=== PATIENT | female | born 1945 | race Caucasian/White ===

== ENCOUNTER 2017-09-26 13:03 | Observation (INO) | payer OTHER ==
[2017-09-26 13:47] LABS: ADD MAN DIFF? NO
[2017-09-26 13:59] LABS: BASOPHILS % 0.2 % (0.0-2.0); EOSINOPHILS # 0.1 10^3/ul (0.0-0.5); EOSINOPHILS % 1.1 % (0.0-7.0); HEMATOCRIT 37.5 % (37.0-47.0); HEMOGLOBIN 11.9 g/dl (12.0-16.0); LYMPHOCYTES # 1.3 10^3/ul (0.8-2.9); LYMPHOCYTES % 11.9 % (15.0-51.0); MEAN CORPUSCULAR HEMOGLOBIN 28.4 pg (29.0-33.0); MEAN CORPUSCULAR HGB CONC 31.7 g/dl (32.0-37.0); MEAN CORPUSCULAR VOLUME 89.5 fl (82.0-101.0); MEAN PLATELET VOLUME 11.2 fl (7.4-10.4); MONOCYTE # 0.5 10^3/ul (0.3-0.9); MONOCYTES % 4.7 % (0.0-11.0); NEUTROPHIL # 8.6 10^3/ul (1.6-7.5); NEUTROPHILS % 81.4 % (39.0-77.0); PLATELET COUNT 274 10^3/UL (140-415); RED BLOOD COUNT 4.19 10^6/ul (4.20-5.40); RED CELL DISTRIBUTION WIDTH 12.8 % (11.5-14.5)
[2017-09-26 13:59] LABS: WHITE BLOOD COUNT 10.6 10^3/ul (4.8-10.8)
[2017-09-26] MEDS: SOD CHLORIDE 0.9% 1,000 ML IV ×2 (14:08→21:21)
[2017-09-26] MEDS: SOD CHLORIDE 0.9% IV (14:08)
[2017-09-26 14:15] LABS: ALANINE AMINOTRANSFERASE 18 IU/L (13-69); ALBUMIN 4.1 g/dl (3.3-4.9); ALBUMIN/GLOBULIN RATIO 1.32; ALKALINE PHOSPHATASE 165 IU/L (42-121); ANION GAP 14 (8-16); ASPARTATE AMINO TRANSFERASE 23 IU/L (15-46); BILIRUBIN,INDIRECT 0.5 mg/dl (0-1.1); BILIRUBIN,TOTAL 0.5 mg/dl (0.2-1.3); BLOOD UREA NITROGEN 11 mg/dl (7-20); CARBON DIOXIDE 31 mmol/L (21-31); CHLORIDE 102 mmol/L (97-110); CREATININE 0.88 mg/dl (0.44-1.00); GLUCOSE 153 mg/dl (70-220); POTASSIUM 4.6 mmol/L (3.5-5.1); SODIUM 142 mmol/L (135-144); TOTAL PROTEIN 7.2 g/dl (6.1-8.1)
[2017-09-26 14:27] LABS: TROPONIN-I < 0.010 ng/ml (0.000-0.120)
[2017-09-26 14:32] LABS: FREE THYROXINE INDEX (Calc) 3.86 ug/ml (0.65-3.89); T3 UPTAKE 33.3 % (23.5-40.5); T4 (THYROXINE) 11.6 ug/dl (5.5-11.0)
[2017-09-26 14:46] LABS: LACTIC ACID 3.6 mmol/L (0.5-2.0)
[2017-09-26 15:22] LABS: ADD UMIC NO; UR ASCORBIC ACID NEGATIVE (NEGATIVE); UR BILIRUBIN (Dip) NEGATIVE (NEGATIVE); UR BLOOD (Dip) NEGATIVE (NEGATIVE); UR CLARITY CLEAR (CLEAR); UR COLOR STRAW (YELLOW); UR GLUCOSE (Dip) NEGATIVE (NEGATIVE); UR KETONES (Dip) NEGATIVE (NEGATIVE); UR LEUKOCYTE ESTERASE (Dip) NEGATIVE Leu/ul (NEGATIVE); UR NITRITE (Dip) NEGATIVE (NEGATIVE); UR SPECIFIC GRAVITY (Dip) 1.006 (1.003-1.030); UR TOTAL PROTEIN (Dip) NEGATIVE (NEGATIVE); UR UROBILINOGEN (Dip) NEGATIVE (NEGATIVE)
[2017-09-26] MEDS ORDERED: ACETAMINOPHEN 325 MG TAB PO ×2 (15:30→19:30)
[2017-09-26] MEDS ORDERED: ONDANSETRON 4 MG INJ IV ×2 (15:30→19:30)
[2017-09-26] MEDS: ERYTHROMYCIN 1 GM OPH OINT BOTH EYES (15:38)
[2017-09-26 16:01] LABS: LACTIC ACID 1.6 mmol/L (0.5-2.0)
[2017-09-26 18:35] LABS: LACTIC ACID 1.9 mmol/L (0.5-2.0)
[2017-09-26] MEDS ORDERED: NACL 0.9% 3 ML SYG IV (19:30)
[2017-09-26] MEDS ORDERED: BISACODYL 10 MG SUPP PR (19:30)
[2017-09-26] MEDS ORDERED: MAGNESIUM HYDROXIDE 30ML CUP PO (19:30)
[2017-09-26] MEDS ORDERED: DOCUSATE SODIUM 100 MG CAP PO (19:30)
[2017-09-26] MEDS: ATORVASTATIN 20 MG TAB PO (21:21)
[2017-09-27] MEDS: PANTOPRAZOLE (EC) 40 MG TAB PO (05:14)
[2017-09-27 07:37] LABS: ADD MAN DIFF? NO
[2017-09-27 07:43] LABS: BASOPHILS % 0.5 % (0.0-2.0); EOSINOPHILS # 0.1 10^3/ul (0.0-0.5); EOSINOPHILS % 2.2 % (0.0-7.0); HEMATOCRIT 34.3 % (37.0-47.0); HEMOGLOBIN 10.8 g/dl (12.0-16.0); LYMPHOCYTES # 1.8 10^3/ul (0.8-2.9); LYMPHOCYTES % 27.5 % (15.0-51.0); MEAN CORPUSCULAR HEMOGLOBIN 28.1 pg (29.0-33.0); MEAN CORPUSCULAR HGB CONC 31.5 g/dl (32.0-37.0); MEAN CORPUSCULAR VOLUME 89.1 fl (82.0-101.0); MEAN PLATELET VOLUME 11.1 fl (7.4-10.4); MONOCYTE # 0.5 10^3/ul (0.3-0.9); MONOCYTES % 8.1 % (0.0-11.0); NEUTROPHIL # 3.9 10^3/ul (1.6-7.5); NEUTROPHILS % 61.4 % (39.0-77.0); PLATELET COUNT 247 10^3/UL (140-415); RED BLOOD COUNT 3.85 10^6/ul (4.20-5.40); RED CELL DISTRIBUTION WIDTH 12.8 % (11.5-14.5)
[2017-09-27 07:43] LABS: WHITE BLOOD COUNT 6.4 10^3/ul (4.8-10.8)
[2017-09-27 08:03] LABS: ANION GAP 10 (8-16); BLOOD UREA NITROGEN 4 mg/dl (7-20); CALCIUM 9.1 mg/dl (8.4-10.2); CARBON DIOXIDE 28 mmol/L (21-31); CHLORIDE 107 mmol/L (97-110); CREATININE 0.63 mg/dl (0.44-1.00); GLUCOSE 92 mg/dl (70-220); MAGNESIUM 1.6 mg/dl (1.7-2.5); POTASSIUM 3.6 mmol/L (3.5-5.1); SODIUM 141 mmol/L (135-144)
[2017-09-27] MEDS: ESCITALOPRAM 10 MG TAB PO (09:29)
[2017-09-27] MEDS: MAGNESIUM SULFATE 2 GM/50 ML 50 ML IVPB (11:16)
== END 2017-09-27 18:23 | disposition home or self-care (01) ==
LOC: E/R 13:03 → PP2 15:31
DX: I95.9 Hypotension, unspecified (principal); E86.0 Dehydration; F03.90 Unspecified dementia, unspecified severity, without behavioral disturbance, psychotic disturbance, mood disturbance, and anxiety; E78.5 Hyperlipidemia, unspecified; K21.9 Gastro-esophageal reflux disease without esophagitis; J44.9 Chronic obstructive pulmonary disease, unspecified; E87.2 Acidosis; R41.82 Altered mental status, unspecified
CPT/HCPCS: 36415; 70450; 71045; 80048; 80053; 81003; 82962; 83605; 83735; 84436; 84479; 84484; 85025; 87040; 87081; 93005; 99217; 99285-25